=== PATIENT | female | born 1965 | race Caucasian/White ===

== ENCOUNTER 2016-10-05 19:59 | Emergency (ER) | payer MEDICAID ==
[~2016-10-05] VITALS: Ht 160 cm; Wt 100.0 kg
[2016-10-05 20:13] VITALS: BP 136/82
== END 2016-10-05 20:34 | disposition left against medical advice (07) ==
LOC: ER 20:00
DX: Z53.21 Procedure and treatment not carried out due to patient leaving prior to being seen by health care provider (principal)